=== PATIENT | female | born 1965 | race Caucasian/White ===

== ENCOUNTER 2020-07-27 15:09 | Emergency (ER) | payer BC ==
[~2020-07-27] VITALS: Ht 170.2 cm; Wt 124.7 kg
[2020-07-27 15:15] VITALS: Ht 170.2 cm; Wt 124.7 kg
[2020-07-27 16:17] LABS: BASOPHIL % 0.7 % (0-2); PLATELET COUNT 253 x10^3mcL (130-400); RED CELL DISTRIBUTION WIDTH 14.8 % (11.5-14.5)
[2020-07-27 16:30] LABS: CALCIUM 9.3 mg/dL (8.5-10.1); CARBON DIOXIDE 28.8 mmol/L (21-32); CREATININE SERUM 1.1 mg/dL (0.6-1.0); POTASSIUM SERUM 3.7 mmol/L (3.5-5.1)
[2020-07-27 16:35] LABS: ALBUMIN 3.8 g/dL (3.4-5.0); BILIRUBIN TOTAL 0.26 mg/dL (0.20-1.00); TOTAL PROTEIN, SERUM 7.3 g/dL (6.4-8.2)
[2020-07-27 20:04] VITALS: BP 137/63
== END 2020-07-27 20:04 | disposition home or self-care (01) ==
LOC: ED 15:09
PROVIDERS: Emergency Medicine
DX: R55 Syncope and collapse (principal); R42 Dizziness and giddiness; I10 Essential (primary) hypertension; E11.9 Type 2 diabetes mellitus without complications; E03.9 Hypothyroidism, unspecified; Z88.0 Allergy status to penicillin
CPT/HCPCS: 82962; J2405; J7030; J8597; Q0092

== ENCOUNTER 2020-11-30 04:33 | Emergency (ER) | payer BC, OTHER ==
[~2020-11-30] VITALS: Ht 170.2 cm; Wt 130.6 kg
[2020-11-30 04:36] VITALS: Ht 170.2 cm; Wt 130.6 kg
[2020-11-30 06:18] LABS: BASOPHIL % 0.5 % (0.2-1.3); PLATELET COUNT 225 x10^3mcL (179-408); RED CELL DISTRIBUTION WIDTH 14.3 % (12.3-17.7)
[2020-11-30 06:27] LABS: CALCIUM 8.7 mg/dL (8.5-10.1); CARBON DIOXIDE 27.3 mmol/L (21-32); CHLORIDE SERUM 105 mmol/L (98-107); CREATININE SERUM 0.9 mg/dL (0.6-1.0); GFR1 > 60 mL/min; GLUCOSE SERUM 118 mg/dL (74-106); POTASSIUM SERUM 3.8 mmol/L (3.5-5.1); SODIUM SERUM 143 mmol/L (136-145)
[2020-11-30 06:40] LABS: ALBUMIN 3.6 g/dL (3.4-5.0); ALKALINE PHOSPHATASE 87 U/L (46-116); ALT/SGPT 37 U/L (14-59); AST/SGOT 20 U/L (15-37); BILIRUBIN TOTAL 0.28 mg/dL (0.20-1.00); FREE T4 1.27 ng/dL (0.76-1.46); MAGNESIUM 2.2 mg/dL (1.8-2.4); TOTAL PROTEIN, SERUM 6.9 g/dL (6.4-8.2)
[2020-11-30 07:55] VITALS: BP 127/76
== END 2020-11-30 07:55 | disposition home or self-care (01) ==
LOC: ED 04:33
PROVIDERS: Student in an Organized Health Care Education/Training Program
DX: R00.2 Palpitations (principal); I10 Essential (primary) hypertension; E03.9 Hypothyroidism, unspecified; Z88.0 Allergy status to penicillin
CPT/HCPCS: 84439

== ENCOUNTER 2020-12-21 15:20 | Emergency (ER) | payer BC, OTHER ==
[~2020-12-21] VITALS: Ht 170.2 cm; Wt 124.7 kg
[2020-12-21 15:35] VITALS: Ht 170.2 cm; Wt 124.7 kg
[2020-12-21 16:13] LABS: PLATELET COUNT 260 x10^3mcL (179-408)
[2020-12-21 16:14] LABS: RED CELL DISTRIBUTION WIDTH 14.6 % (12.3-17.7)
[2020-12-21 16:41] LABS: CALCIUM 9.5 mg/dL (8.5-10.1); CARBON DIOXIDE 31.9 mmol/L (21-32); CHLORIDE SERUM 105 mmol/L (98-107); CREATININE SERUM 0.9 mg/dL (0.6-1.0); GFR1 > 60 mL/min; GLUCOSE SERUM 92 mg/dL (74-106); SODIUM SERUM 141 mmol/L (136-145)
[2020-12-21 16:46] LABS: ALKALINE PHOSPHATASE 83 U/L (46-116); ALT/SGPT 30 U/L (14-59); AST/SGOT 17 U/L (15-37); BILIRUBIN TOTAL 0.3 mg/dL (0.20-1.00); TOTAL PROTEIN, SERUM 7.5 g/dL (6.4-8.2)
[2020-12-21 17:25] VITALS: BP 141/72
== END 2020-12-21 17:25 | disposition home or self-care (01) ==
LOC: ED 15:20
PROVIDERS: Emergency Medicine
DX: F41.9 Anxiety disorder, unspecified (principal); I10 Essential (primary) hypertension; E03.9 Hypothyroidism, unspecified